=== PATIENT | female | born 1980 | race Caucasian/White ===

== ENCOUNTER 2017-05-06 13:46 | Day surgery (SDC) | payer BC ==
[~2017-05-06 13:46] MED LIST: B Complex #11 EACH PO; CHOL10002 PO; DHEA PO; MULTI VITAMIN1 EACH PO; PROG100 PO; Prozac20 MG PO
[2017-05-06] MEDS ORDERED: IRON150C PO (14:20)
== END 2017-05-06 22:57 | disposition home or self-care (01) ==
LOC: ATC 13:46
DX: D50.9 Iron deficiency anemia, unspecified (principal); F32.9 Major depressive disorder, single episode, unspecified; C18.2 Malignant neoplasm of ascending colon
CPT/HCPCS: 36415; 36430; 86850; 86900; 86901; 86920; J7030; P9016

== ENCOUNTER → 2023-02-11 | Outpatient (CLI) | payer OTHER ==
[~2023-02-11] MED LIST changes: +IRON150C PO
== END ==
LOC: LAB SHORT 13:53 → LAB 13:53
DX: R30.0 Dysuria (principal)
CPT/HCPCS: 87077; 87086; 87186